=== PATIENT | male | born 1975 | race Caucasian/White ===

== ENCOUNTER 2025-10-05 07:28 | Emergency (ER) | payer OTHER ==
[2025-10-05] MEDS ORDERED: Dexamethasone 10 MG/ML VIAL ONE (08:01)
[2025-10-05] MEDS ORDERED: Ketorolac Tromethamine 30 MG (1 mL) VIAL ONE (08:01)
[2025-10-05 08:08] LABS: #Basophils 0.04 10x3/uL (0.0-0.2); #Eosinophils 0.21 10x3/uL (0.0-0.5); #Monocytes 1.32 10x3/uL (0.0-1.1); #Neutrophils 7.15 10x3/uL (1.5-8.4); %Basophils 0.4 % (0.0-2.0); %Eosinophils 2.0 % (0.0-6.0); %Lymphocytes 16.7 % (18.0-47.0); %Monocytes 12.5 % (0.0-10.0); %Neutrophils 68.0 % (40.0-75.0); Hematocrit 50.7 % (38.8-50.0); Hemoglobin 17.1 g/dL (13.5-17.5); Mean Corpuscular Hemoglobin 28.9 pg (27.0-33.0); Mean Corpuscular Volume 85.8 fL (81.2-95.1); Platelet Count 231 10x3/uL (150-450); Red Blood Cell (RBC) Count 5.91 10x6/uL (4.32-5.72); White Blood Cell (WBC) Count 10.52 10x3/uL (3.5-10.5)
[2025-10-05 09:48] LABS: ALT (SGPT) 21 U/L (Less than 45); AST (SGOT) 35 U/L (11-34); Albumin 4.0 g/dL (3.1-4.5); Alkaline Phosphatase 63 U/L (40-110); Anion Gap 11 mmol/L (10-20); BUN (Urea Nitrogen) 13 mg/dL (8.9-20.6); Bilirubin, Total 0.8 mg/dL (0.3-1.2); Calc. Creatinine Clearance 0 mL/min (70-130); Calcium 8.4 mg/dL (7.8-10.44); Carbon Dioxide 24 mmol/L (22-29); Chloride 104 mmol/L (98-107); Globulin 2.5 g/dL (2.4-3.5); Glucose 103 mg/dL (70-105); Potassium 4.2 mmol/L (3.5-5.1); Sodium 135 mmol/L (136-145)
[2025-10-05] MEDS ORDERED: Amoxicillin/Potassium Clav 875 MG TAB ONE (10:31)
[2025-10-05] MEDS ORDERED: Iopamidol 300 61% 100 ML VIAL FS ONE (11:36)
== END 2025-10-05 10:32 | disposition home or self-care (01) ==
LOC: CSHERS 07:28
DX: K11.20 Sialoadenitis, unspecified (principal); J02.9 Acute pharyngitis, unspecified; I10 Essential (primary) hypertension; D72.829 Elevated white blood cell count, unspecified
CPT/HCPCS: 36416; 70491; 80053; 83605; 85025; 96374; 96375; J1100; J1885; Q9967